=== PATIENT | female | born 1985 | race Hispanic/Latino ===

== ENCOUNTER 2018-04-17 20:21 | Inpatient (IN) | payer BC ==
[2018-04-17] MEDS ORDERED: Ringers Lactate 1,000 ML IV PRN (20:24)
[2018-04-17] MEDS ORDERED: CARBOPROST TROME 250 MCG/ML IM PRN (20:24)
[2018-04-17] MEDS ORDERED: METHYLERGONOVINE 0.2MG/ML AMP IM PRN (20:24)
[2018-04-17] MEDS ORDERED: PROMETHAZINE 25 MG/ML VIAL IV PRN (20:24)
[2018-04-17] MEDS ORDERED: BUTORPHANOL 1 MG/ML INJ IV PRN (20:24)
[2018-04-17] MEDS ORDERED: PENICILLIN 5 MU in NA CHLORIDE 0.9% 100 ML IV ONE (20:28)
[2018-04-17] MEDS ORDERED: Ringers Lactate 1,000 ML IV SCH (21:00)
[2018-04-17] MEDS ORDERED: PENICILLIN G POT 5 MU/VIAL IV ONE (21:02)
[2018-04-17] MEDS ORDERED: NA CHLORIDE 0.9% 0 ML IV ONE (21:03)
[2018-04-17] MEDS ORDERED: PENICILLIN G POT 5 MU/100 ML BAG IV ONE (21:05)
[2018-04-17 21:25] LABS: RPR Titer ND
[2018-04-17 21:29] LABS: Absolute Lymphocytes (CBC) 1.5 K/uL (0.7-4.9); Absolute Monocytes 0.9 K/uL (0.1-1.3); Absolute Neutrophil 6.3 K/uL (1.8-8.0); Basophils % 0.5 % (0-1.3); Eosinophils % 1.5 % (0-4.4); Hematocrit 30.5 % (36.0-45.0); Lymphocytes % 16.6 % (15.3-44.8); MPV 9.4 fL (7.6-11.3); Monocytes % 9.9 % (3.3-12.3); RBC Red Blood Cell Count 3.84 M/uL (3.86-4.86)
[2018-04-17 21:38] LABS: Glucose Level 86 mg/dL (74-106)
[2018-04-17] MEDS ORDERED: ROPIVACAINE HCL 100 ML IV PRN (21:40)
[2018-04-17] MEDS ORDERED: FENTANYL CITR 100 MCG/2 ML IV ONE (21:40)
[2018-04-17 21:58] VITALS: BMI 29.2
[2018-04-17] MEDS ORDERED: ROPIVACAINE HCL 20 ML ONE (22:13)
[2018-04-17] MEDS ORDERED: ROPIVACAINE HCL 100 ML IV ONE (22:13)
[2018-04-17 22:20] LABS: RPR (Rapid Plasma Reagin) NON-REACT (NON-REACT)
[2018-04-17] MEDS ORDERED: ROPIVACAINE HCL 0.2% 20ML AMP SQ ONE (23:00)
[2018-04-17] MEDS ORDERED: OXYTOCIN/LR 20 UNIT/1,000 ML BAG IV SCH (23:00)
[2018-04-18] MEDS ORDERED: CARBOPROST TROME 250 MCG/ML IM PRN (00:14)
[2018-04-18] MEDS ORDERED: METHYLERGONOVINE 0.2 MG TAB PO PRN (00:14)
[2018-04-18] MEDS ORDERED: METHYLERGONOVINE 0.2MG/ML AMP IM PRN (00:14)
[2018-04-18] MEDS ORDERED: ACETAMINOPHEN 500 MG TAB PO PRN (00:14)
[2018-04-18] MEDS ORDERED: ONDANSETRON 4 MG (ODT) TAB PO PRN (00:14)
--- NOTE | 2018-04-18 00:17 | P.BOP ---
Preoperative diagnosis: 36 week , SROM Postoperative diagnosis: Same, delivery viable male Primary procedure: SCVD viable male Estimated blood loss: <300ml Anesthesia: epidural Complications: None Transferred to: Other (274) Condition: Good
[2018-04-18] MEDS ORDERED: PENICILLIN 2.5 MU in NA CHLORIDE 0.9% 100 ML IV SCH (01:00)
[2018-04-18] MEDS ORDERED: OXYTOCIN/LR 20 UNIT/1,000 ML BAG IV SCH (01:00)
--- NOTE | 2018-04-18 02:05 | PREOPHP ---
Date of Admission: 04/17/2018 History Of Present Illness: Ms. Man is a 32-year-old female, 2, para 1-0-0-1, now at 35 and 6/7th weeks gestation. She has been followed by her physician in [place], was here visiting for the weekend and presents with rupture of membranes since approximately 5 o'clock and today she began having contractions and presents to Labor and Delivery for evaluation. She is noted to have gross rupture of membranes, was noted to be 3 cm dilated. She is admitted for delivery. She apparently has been followed during this without significant complications. There was concern at 1 time about fluid around baby's heart, but a echocardiogram as seen by Maternal- specialist showed no evidence of abnormality. Past Medical History: Includes only prior delivery of a 6-plus pound infant at 38 weeks gestation without blood pressure problems or sugar problems. She has also had right ACL repair previously, otherwise, no other hospitalizations, accidents, illnesses, or injuries. Medications: She is on no medications other than vitamins. Allergies: SHE LISTS NO KNOWN ALLERGIES. Social History: She does not smoke. Family History: Noncontributory. Review of Systems: She reports no recent cough, cold, fever, or chills. No recent nausea, vomiting. She denies any breast knots or lumps. Baby has been active. She denies urine symptoms or recurring diarrhea or constipation issues. Physical Examination: General: Reveals pleasant female, in mild to moderate discomfort with contractions. Neck: Supple without adenopathy or thyromegaly. Lungs: Clear. Cardiac: Regular rate and rhythm without murmurs. BREASTS: Not examined. ABDOMEN: Estimated weight approximately 6-plus pounds. PELVIC: As above. EXTREMITIES: No cyanosis, clubbing, or edema. Impression: A 35-plus week with rupture of membranes in active labor. Plan: The patient will receive penicillin prophylaxis for beta strep carriage. Because of unknown beta strep and delivery before 37 weeks gestation, we will call Anesthesia for epidural placement. CONSTANTINO/NICOLE Voice ID: [id number] HORACE
[2018-04-18] MEDS: IBUPROFEN 200 MG TAB PO PRN ×2 (10:15→19:08)
--- NOTE | 2018-04-18 17:26 | OP ---
Surgeon: Asif Tripathi MD Ms. Man is a 32-year-old female, 2, para 1-0-0-1, followed by a physician in [place], was here visiting family, had spontaneous rupture of membranes, now at 35 and 6/7th weeks g estation. She presents to Labor and Delivery for evaluation. She was noted to be 3 cm on admission. She was admitted after placement of epidural catheter, Pitocin augmentation was begun. After place ment of epidural catheter, she had a total of first stage of labor of 9 hours and 15 minutes, second stage of labor of 22 minutes. She had a spontaneous controlled vaginal delivery of a 6 pounds 3 ounc e male infant, 9 and 9. After delayed cord clamping, the was placed on mother's upper a bdomen. Cord blood obtained. Placenta was spontaneously expelled and appeared to be intact. Intrau terine examination revealed no retained placental fragments. She suffered a small abrasion in the le ft labia majora, but no other lacerations were noted. Estimated total blood loss was less than 300 c c. The patient tolerated procedures well, had 1 mg of Stadol. She did receive penicillin prophylaxi s during her labor course and received 1 dose because of delivery and unknown strep status, d ose was given approximately 3 hours prior to the time of delivery. CONSTANTINO/NICOLE Voice ID: [id number] Report ID: [id number]
[2018-04-19] MEDS: IBUPROFEN 200 MG TAB PO PRN (05:42)
--- NOTE | 2018-04-19 07:45 | DS ---
Final Hospital Discharge Diagnoses: 1.36-week , delivered. 2.Iron deficiency anemia. Complications: None. Procedures: Artificial rupture of membranes, penicillin prophylaxis for prevention of beta strep inf ection, spontaneous controlled vaginal delivery of viable male infant. Hospital Course: The patient is a 32-year-old female, 2, para 1-0-0-1, at 35 and 6/ 7th weeks gestation, admitted in active labor. She delivered a 6-pound 3-ounce male , 9 and 9 with epidural anesthesia. She was prophylaxed with penicillin. She was dismissed on the day on a select diet with routine post vaginal delivery activity restrictions. Lab work included an admission hemoglobin and hematocrit of 9.9 and 30.5, dismissal 29.5 with indices consist ent with iron deficiency anemia. She had a glucose of 86. Nonreactive RPR. She is blood type O pos itive. She was dismissed to be seen by her physician in [place] with usual post vaginal delivery activity restrictions and to continue taking her iron and vitamins. CONSTANTINO/NICOLE Voice ID: [id number] Report ID: [id number]
[2018-04-19 07:47] VITALS: BP 114/49; TEMP 98.1
[2018-04-21 05:22] LABS: HBsAG Nonreactive (Nonreactive)
== END 2018-04-19 10:00 | disposition home or self-care (01) | DRG 807 ==
LOC: L&D 20:21 → 2ND-WC 20:22
PROVIDERS: ADMIT Specialist; ATTEND Specialist
PROC: 10E0XZZ Delivery of Products of Conception, External Approach (ICD-10-PCS; principal; 2018-04-17)
PROC: 0UQMXZZ Repair Vulva, External Approach (ICD-10-PCS; 2018-04-17)
DX: O60.14X0 Preterm labor third trimester with preterm delivery third trimester, not applicable or unspecified (principal); Z37.0 Single live birth; O70.0 First degree perineal laceration during delivery; D50.9 Iron deficiency anemia, unspecified; Z3A.35 35 weeks gestation of pregnancy; O90.81 Anemia of the puerperium
CPT/HCPCS: 36415; 82947; 85014; 85025; 86592; 86762; 86850; 86900; 86901; 87340; G0433; J2210; J2590; J2795; J3010